=== PATIENT | female | born 2005 | race Caucasian/White ===

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

== ENCOUNTER 2024-07-09 11:45 | Emergency (ER) | payer OTHER, MEDICAID ==
[2024-07-09 12:47] VITALS: BP 101/64; PULSE 63; RESP 18; TEMP 97.1; O2SAT 99
--- NOTE | 2024-07-09 13:10 | ERPHSYRPT ---
- History of Present Illness Time Seen by Provider: 07/09/24 13:03 Source: patient, family Exam Limitations: no limitations Patient Subjective Stated Complaint: pt here for rash to body since wed. Triage Nursing Assessment: pt alert, walked in, resp easy, skin w/d/p has rash to trunk, co itching. no difficulty swolling Physician History: I was delayed with 2 hypotensive pts and delayed being able to bring this pt back and see them. the pt iw very allergic to poison demetrice and the di weed eating of this and then had contact with who broke out. No one else is allergic and she has just had a a few weeks old and wondering about feeding. She will consult with medicare insurance specialist hot line today to confirm but the literature search confirms this should be safe. she has cleansed all skin prior to contact with infant and no rash in infant after several days. Not sobreath and swallowing in ER ok. rash with papules similar to prior cases pt has had. discussed risks/benefits of further testing and Tx with steroids with pt and family and they wish to proceed presumptively without any further w/u given the hx and have the capacity to make this choice. Timing/Duration: day(s) Quality: burning, itchy Severity: moderate Location: torso, extremities Possible Causes: exposure to allergen, poison demetrice Associated Symptoms: blisters, change in skin texture, rash, No difficulty breathing, No fever, No flushing, No hives, No sore throat Allergies/Adverse Reactions: Penicillins Allergy (Mild, Verified 07/09/24 12:46) Nausea and Vomiting Hx Tetanus, Diphtheria Vaccination/Date Given: No Hx Influenza Vaccination/Date Given: No Hx Pneumococcal Vaccination/Date Given: No Immunizations Up to Date: Yes Travel Risk - International Travel Have you traveled outside of the country in past 3 weeks: No - Emerging Infectious Disease Are you exhibiting symptoms associated with any current EIDs: No - Review of Systems Constitutional: No Fever, No Chills Eyes: No Symptoms Ears, Nose, & Throat: No Symptoms, No Throat Pain, No Throat Swelling, No Hoarse, No Painful Swallowing, No Stridor Respiratory: No Cough, No Dyspnea, No Stridor, No Wheezing Cardiac: No Chest Pain, No Edema, No Syncope Abdominal/Gastrointestinal: No Abdominal Pain, No Nausea, No Vomiting, No Diarrhea Genitourinary Symptoms: No Dysuria Musculoskeletal: No Back Pain, No Neck Pain Skin: Rash Neurological: No Dizziness, No Focal Weakness, No Sensory Changes Psychological: No Symptoms Endocrine: No Symptoms All Other Systems: Reviewed and Negative - Past Medical History Pertinent Past Medical History: No Neurological History: No Pertinent History ENT History: No Pertinent History Cardiac History: No Pertinent History Respiratory History: No Pertinent History Endocrine Medical History: No Pertinent History Musculoskeletal History: No Pertinent History GI Medical History: No Pertinent History History: No Pertinent History Psycho-Social History: No Pertinent History Female Reproductive Disorders: Endometriosis Other Medical History: . - Past Surgical History Past Surgical History: No Neuro Surgical History: No Pertinent History Cardiac: No Pertinent History Respiratory: No Pertinent History Gastrointestinal: No Pertinent History Genitourinary: No Pertinent History Musculoskeletal: No Pertinent History Female Surgical History: No Pertinent History - Female History Hx Last Menstrual Period: sep 2023 Hx Now: No - Social History Smoking Status: Never smoker How long have you smoked: 1 year Exposure to second hand smoke: No Drug Use: none Patient Lives Alone: No - Social Determinants of Health Will the patient participate in the screening: Declined to provide - Nursing Vital Signs Nursing Vital Signs: Initial Vital Signs Temperature 97.1 F 07/09/24 12:46 Pulse Rate 63 07/09/24 12:46 Respiratory Rate 18 07/09/24 12:46 Blood Pressure 101/64 07/09/24 12:46 O2 Sat by Pulse Oximetry 99 07/09/24 12:46 Pain Scale Pain Intensity 0 - Physical Exam General Appearance: no apparent distress, alert Eye Exam: PERRL/EOMI, eyes nml inspection Ears, Nose, Throat Exam: normal ENT inspection, pharynx normal, moist mucous membranes Neck Exam: normal inspection, non-tender, supple, full range of motion Respiratory Exam: normal breath sounds, lungs clear, airway intact, No respiratory distress, No diminished breath sounds, No accessory muscle use, No prolonged expirations, No crackles/rales, No rhonchi, No wheezing, No stridor Cardiovascular Exam: regular rate/rhythm, normal heart sounds Gastrointestinal/Abdomen Exam: soft, mass, No tenderness Back Exam: normal inspection, normal range of motion, No CVA tenderness, No vertebral tenderness Extremity Exam: normal inspection, normal range of motion Neurologic Exam: alert, oriented x 3, cooperative, normal mood/affect, sensation nml, No motor deficits Skin Exam: normal color, warm, dry, rash SpO2 Interpretation: normal SpO2: 99 O2 Delivery: Room Air - Course Nursing assessment & vital signs reviewed: Yes - Progress Progress: improved, re-examined Counseled pt/family regarding: diagnosis, need for follow-up Medical Desision Making - Independent Historian Additional History obtained from: Family - Discussion of managment Reviewed:: Test results, Need for additional workup Agreed on:: Treatment plan, need for follow-up - Diagnostic Testing Diagnostic test were ordered, analyzed, and reviewed by me: No - Risk of complications The pt has a mod risk of morbidity or mortality based on: Need for prescription drug management - Departure Departure Disposition: Home Clinical Impression: Contact dermatitis, Rhus dermatitis, rash consistent with poison demetrice exposure Condition: Good Critical Care Time: No Referrals: IVETH DOWLING MD [Primary Care Provider] - Follow up/PCP as directed Instructions: Poison Demetrice, Poison [place], Poison [place] ([place]) Additional Instructions: Although we cannot be certain the source for your rash- the history of exposure to your family member after his exposure makes the poison demetrice a likely source in view of your history of allergy. We will try a course of steroids and you should followup with your Dr., your exhauster engineer for the , and the hotline even though the literature suggests that breast feeding should be safe on this med. pump and dump anyway for 4 hours after the inject ion, to be safe. return meantime if short of breath, trouble swallowing or not improving or any other concerns. Prescriptions: Methylprednisolone Packet [Medrol Dosepack] 4 mg PO UD #30 packet
[2024-07-09] MEDS ORDERED: DECADRON 10MG INJ. ONE (13:19)
[2024-07-09] MEDS: DECADRON 10MG INJ. IM ONE (13:22)
== END 2024-07-09 13:49 | disposition home or self-care (01) ==
LOC: ED 11:45
DX: L23.7 Allergic contact dermatitis due to plants, except food (principal); Z79.52 Long term (current) use of systemic steroids
CPT/HCPCS: 96372; 99282; J1100

== ENCOUNTER 2024-08-23 21:22 | Emergency (ER) | payer MEDICAID ==
[2024-08-23 21:44] VITALS: TEMP 98.3
[2024-08-23] MEDS: TORAdol 30 mg Injection IV ONE (22:39)
[2024-08-23] MEDS ORDERED: TORAdol 30 mg Injection ONE (22:39)
[2024-08-23 22:47] LABS: Absolute Neutrophil Ct (ANC) 6.16 x10^3/uL (1.56-6.13); BASOPHIL % 0.4 % (0.1-1.2); Basophil (Absolute #) 0.04 x10^3/uL (0.01-0.08); Eosinophil % 1.3 % (0.7-5.8); Eosinophil (Absolute #) 0.12 x10^3/uL (0.04-0.36); Hematocrit 39.8 % (34.1-44.9); IMMATURE GRAN # 0.03 x10^3u/L (0.001-0.031); IMMATURE GRAN % 0.3 % (0.001-0.429); Lymphocyte (Absolute #) 2.13 x10^3/uL (1.18-3.74); Lymphocytes % 23.6 % (19.3-51.7); Mean Cell Volume 76.8 fL (79.4-94.8); Mean Corpuscular Hemoglobin 25.1 pg (25.6-32.2); Mean Corpuscular Hgb Concent. 32.7 g/dL (32.2-35.5); Mean Platelet Volume 10.1 fL (9.4-12.3); Monocyte (Absolute #) 0.53 x10^3/uL (0.24-0.86); Monocytes % 5.9 % (4.7-12.5); Neutrophil % 68.5 % (34.0-71.1); Platelet Count 450 x10^3/uL (182-369); Red Blood Count 5.18 x10^6/uL (3.93-5.22); Red Cell Distribution Width 19.6 % (11.7-14.4)
--- NOTE | 2024-08-23 22:49 | ERPHSYRPT ---
- History of Present Illness Time Seen by Provider: 08/23/24 21:50 Source: patient Patient Subjective Stated Complaint: c/o of vaginal bleeding and abdominal cramping Triage Nursing Assessment: Pt was brought to ED by with c/o of vaginal bleeding that started on 07/28/2024 and abdominal cramping in the bilat. lower quads and lower back. Patient rates pain 4/10 but stated that pain was so bad this morning that she couldn't get out bed. Patient had given on June 22, 2024. Pt states that she has gone through a tampon every hour. Pt has a family history of endometriosis but hasn't been diagnosed with it herself. Tachycardic, pulses normal, skin w/n/d, gait steady, last BM today, last oral intake at 2100, bowel sounds present in all four quads, abdomen tender with palpation, pt doesn't appear to be in any distress at this time. Physician History: Patient is a 27-year-old female presents to our ED for evaluation of vaginal bl eeding that started on 07 28. Patient states she has been experiencing intermittent cramping since this time. Patient reports the vaginal bleeding has gotten somewhat worse. Patient states she is bleeding through a tampon every hour. Patient has discussed this issue with her [employer] physician. She reports that the [employer]CIAL OFFICER states that there is "nothing he can do". Patient concern for possible endometriosis. Patient reports that she had a significant family history of endometriosis. No trauma no fever. No active pain at this time. Patient declined pain medication. Vital stable. Patient states she is otherwise healthy. Patient voices no other complaints or concerns at this time. Portions of this note were created with voice recognition technology. There may be grammatical, spelling, punctuation or sound alike errors Timing/Duration: today Severity: moderate Modifying Factors: Improves With: nothing Associated Symptoms: denies symptoms Allergies/Adverse Reactions: Penicillins Allergy (Mild, Verified 08/23/24 21:44) Nausea and Vomiting Home Medications: Estradiol Cypionate [Depo-Estradiol] 5 mg IM UD 08/23/24 [History] Hx Tetanus, Diphtheria Vaccination/Date Given: No Hx Influenza Vaccination/Date Given: Yes Hx Pneumococcal Vaccination/Date Given: No Travel Risk - International Travel Have you traveled outside of the country in past 3 weeks: No - Emerging Infectious Disease Are you exhibiting symptoms associated with any current EIDs: No - Review of Systems Constitutional: No Symptoms, No Fever, No Chills Eyes: No Symptoms Ears, Nose, & Throat: No Symptoms Respiratory: No Symptoms, No Cough, No Dyspnea Cardiac: No Symptoms, No Chest Pain, No Edema, No Syncope Abdominal/Gastrointestinal: No Symptoms, No Abdominal Pain, No Nausea, No Vomiting, No Diarrhea Genitourinary Symptoms: No Symptoms, No Dysuria Musculoskeletal: No Symptoms, No Back Pain, No Neck Pain Skin: No Symptoms, No Rash Neurological: No Symptoms, No Dizziness, No Focal Weakness, No Sensory Changes Psychological: No Symptoms Endocrine: No Symptoms Hematologic/Lymphatic: No Symptoms Immunological/Allergic: No Symptoms All Other Systems: Reviewed and Negative - Past Medical History Pertinent Past Medical History: No Neurological History: No Pertinent History ENT History: No Pertinent History Cardiac History: No Pertinent History Respiratory History: No Pertinent History Endocrine Medical History: No Pertinent History Musculoskeletal History: No Pertinent History GI Medical History: No Pertinent History History: No Pertinent History Psycho-Social History: No Pertinent History Female Reproductive Disorders: Endometriosis Other Medical History: . - Past Surgical History Past Surgical History: No Neuro Surgical History: No Pertinent History Cardiac: No Pertinent History Respiratory: No Pertinent History Gastrointestinal: No Pertinent History Genitourinary: No Pertinent History Musculoskeletal: No Pertinent History Female Surgical History: No Pertinent History - Female History Hx Last Menstrual Period: 08/23/2024 Hx Now: No - Social History Smoking Status: Never smoker How long have you smoked: 1 year Exposure to second hand smoke: No Drug Use: none Patient Lives Alone: No - Social Determinants of Health Will the patient participate in the screening: Yes Do you worry about a steady place to live?: No Do you have any problems with any of the following?: No known problems In the past 12 months,have you had to go without utilities?: No Transportation Issues: No Has anyone in your support network made you feel unsafe?: No Have you or anyone in your house had to go without enough: No - Nursing Vital Signs Nursing Vital Signs: Initial Vital Signs Temperature 98.3 F 08/23/24 21:29 Pulse Rate 116 H 08/23/24 21:29 Respiratory Rate 16 08/23/24 21:29 Blood Pressure 130/80 08/23/24 21:29 O2 Sat by Pulse Oximetry 98 08/23/24 21:29 Pain Scale Pain Intensity 1 - Physical Exam General Appearance: no apparent distress, alert Eye Exam: PERRL/EOMI, eyes nml inspection Ears, Nose, Throat Exam: normal ENT inspection, pharynx normal, moist mucous membranes Neck Exam: normal inspection, non-tender, supple, full range of motion Respiratory Exam: normal breath sounds, lungs clear, airway intact, No respiratory distress Cardiovascular Exam: regular rate/rhythm, normal heart sounds, normal peripheral pulses Gastrointestinal/Abdomen Exam: soft, normal bowel sounds, No tenderness, No mass Pelvic Exam: normal external exam, other (Scant blood in vault no foul odor), No adnexal tenderness, No adnexal mass, No cervical motion tenderness Back Exam: normal inspection, normal range of motion, No CVA tenderness, No vertebral tenderness Extremity Exam: normal inspection, normal range of motion, pelvis stable Neurologic Exam: alert, oriented x 3, cooperative, normal mood/affect, sensation nml, No motor deficits Skin Exam: normal color, warm, dry, No rash Lymphatic Exam: No adenopathy SpO2 Interpretation: normal SpO2: 99 O2 Delivery: Room Air - Course Nursing assessment & vital signs reviewed: Yes Ordered Tests: Active Orders 24 hr Category Date Time Status IV Insertion STAT Care 08/23/24 22:07 Active CBC W DIFF Stat Lab 08/23/24 22:45 Completed CMP Stat Lab 08/23/24 22:45 Completed CULTURE,URINE Stat Lab 08/23/24 22:17 Received HCG QUALITATIVE, URINE Stat Lab 08/23/24 22:45 Completed UA W/RFX UR CULTURE Stat Lab 08/23/24 22:17 Completed Medication Summary Discontinued Medications Generic Name Dose Route Start Last Admin Trade Name Kyle PRN Reason Stop Dose Admin Ketorolac Tromethamine 30 mg 08/23/24 22:07 08/23/24 22:39 Ketorolac Tromethamine 30 Mg/Ml Inj IV 08/23/24 22:08 30 mg STAT ONE Administration Ketorolac Tromethamine Confirm 08/23/24 22:39 Ketorolac Tromethamine 30 Mg/Ml Inj Administered 08/23/24 22:40 Dose 30 mg .ROUTE .crossvertise-Synthox ONE Lab/Rad Data: Laboratory Result Diagrams 08/23/24 22:45 08/23/24 22:45 Laboratory Results 08/23/24 08/23/2424 Range/Units Unknown 23:00 22:45 WBC (3.98-10.04) x10^3/uL RBC (3.93-5.22) x10^6/uL Hgb (11.2-15.7) g/dL Hct (34.1-44.9) % MCV (79.4-94.8) fL MCH (25.6-32.2) pg MCHC (32.2-35.5) g/dL RDW (11.7-14.4) % Plt Count (182-369) x10^3/uL MPV (9.4-12.3) fL Gran % (34.0-71.1) % Immature Gran % (Auto) (0.001-0.429) % Nucleat RBC Rel Count (0.00-0.2) % Eos # (Auto) (0.04-0.36) x10^3/uL Immature Gran # (Auto) (0.001-0.031) x10^3u/L Absolute Lymphs (auto) (1.18-3.74) x10^3/uL Absolute Monos (auto) (0.24-0.86) x10^3/uL Absolute Nucleated RBC (0.00-0.012) x10^3u/L Lymphocytes % (19.3-51.7) % Monocytes % (4.7-12.5) % Eosinophils % (0.7-5.8) % Basophils % (0.1-1.2) % Absolute Granulocytes (1.56-6.13) x10^3/uL Basophils # (0.01-0.08) x10^3/uL Sodium (135-145) mmol/L Potassium (3.5-5.1) mmol/L Chloride (98-107) mmol/L Carbon Dioxide (22-30) mmol/L Anion Gap (5-15) MEQ/L BUN (7-17) mg/dL Creatinine (0.52-1.04) mg/dL Estimated GFR ML/MIN Glucose (74-106) mg/dL Calcium (8.4-10.2) mg/dL Total Bilirubin (0.2-1.3) mg/dL AST (14-36) U/L ALT (0-35) U/L Alkaline Phosphatase (38-126) U/L Serum Total Protein (6.3-8.2) g/dL Albumin (3.5-5.0) g/dL Urine Color (Yellow) Urine Appearance (Clear) Urine pH (4.6-8.0) Ur Specific [place] (1.005-1.030) Urine Protein (Negative) Urine Glucose (UA) (Negative) mg/dL Urine Ketones (Negative) Urine Blood (Negative) Urine Nitrite (Negative) Urine Bilirubin (Negative) Urine Urobilinogen (0.2) mg/dL Ur Leukocyte Esterase (Negative) U Hyaline Cast (Auto) (0-2) /LPF Urine Microscopic RBC (0-5) /HPF Urine Microscopic WBC (0-5) /HPF Ur Epithelial Cells (None Seen) /HPF Urine Bacteria (None Seen) /HPF Urine Culture Reflexed (NO) Urine HCG, Qual NEGATIVE (NEGATIVE) Vaginal Maryam Group DETECTED A (NEGATIVE) Maryam species NOT DETECTED (NEGATIVE) Chlamydia DNA Probe NOT DETECTED (NEGATIVE) N.gonorrhoeae DNA Probe NOT DETECTED (NEGATIVE) T. vaginalis (PCR) NOT DETECTED (NEGATIVE) Bact vaginosis (PCR) NEGATIVE (NEGATIVE) 08/23/24 08/23/24 08/23/24 Range/Units 22:45 22:45 22:17 WBC 9.0 (3.98-10.04) x10^3/uL RBC 5.18 (3.93-5.22) x10^6/uL Hgb 13.0 (11.2-15.7) g/dL Hct 39.8 (34.1-44.9) % MCV 76.8 L (79.4-94.8) fL MCH 25.1 L (25.6-32.2) pg MCHC 32.7 (32.2-35.5) g/dL RDW 19.6 H (11.7-14.4) % Plt Count 450 H (182-369) x10^3/uL MPV 10.1 (9.4-12.3) fL Gran % 68.5 (34.0-71.1) % Immature Gran % (Auto) 0.3 (0.001-0.429) % Nucleat RBC Rel Count 0.0 (0.00-0.2) % Eos # (Auto) 0.12 (0.04-0.36) x10^3/uL Immature Gran # (Auto) 0.03 (0.001-0.031) x10^3u/L Absolute Lymphs (auto) 2.13 (1.18-3.74) x10^3/uL Absolute Monos (auto) 0.53 (0.24-0.86) x10^3/uL Absolute Nucleated RBC 0.00 (0.00-0.012) x10^3u/L Lymphocytes % 23.6 (19.3-51.7) % Monocytes % 5.9 (4.7-12.5) % Eosinophils % 1.3 (0.7-5.8) % Basophils % 0.4 (0.1-1.2) % Absolute Granulocytes 6.16 H (1.56-6.13) x10^3/uL Basophils # 0.04 (0.01-0.08) x10^3/uL Sodium 140 (135-145) mmol/L Potassium 3.6 (3.5-5.1) mmol/L Chloride 107 (98-107) mmol/L Carbon Dioxide 21 L (22-30) mmol/L Anion Gap 15.6 H (5-15) MEQ/L BUN 13 (7-17) mg/dL Creatinine 0.55 (0.52-1.04) mg/dL Estimated GFR 134.5 ML/MIN Glucose 124 H (74-106) mg/dL Calcium 9.2 (8.4-10.2) mg/dL Total Bilirubin 1.10 (0.2-1.3) mg/dL AST 72 H (14-36) U/L ALT 94 H (0-35) U/L Alkaline Phosphatase 77 (38-126) U/L Serum Total Protein 7.8 (6.3-8.2) g/dL Albumin 4.7 (3.5-5.0) g/dL Urine Color Yellow (Yellow) Urine Appearance Cloudy A (Clear) Urine pH 6.0 (4.6-8.0) Ur Specific [place] >=1.030 A (1.005-1.030) Urine Protein 30 (Negative) Urine Glucose (UA) Negative (Negative) mg/dL Urine Ketones Trace A (Negative) Urine Blood Small A (Negative) Urine Nitrite Negative (Negative) Urine Bilirubin Negative (Negative) Urine Urobilinogen 1.0 A (0.2) mg/dL Ur Leukocyte Esterase Small A (Negative) U Hyaline Cast (Auto) 3-5 A (0-2) /LPF Urine Microscopic RBC 0-2 (0-5) /HPF Urine Microscopic WBC 11-20 A (0-5) /HPF Ur Epithelial Cells Rare (None Seen) /HPF Urine Bacteria Rare A (None Seen) /HPF Urine Culture Reflexed YES (NO) Urine HCG, Qual (NEGATIVE) Vaginal Maryam Group (NEGATIVE) Maryam species (NEGATIVE) Chlamydia DNA Probe (NEGATIVE) N.gonorrhoeae DNA Probe (NEGATIVE) T. vaginalis (PCR) (NEGATIVE) Bact vaginosis (PCR) (NEGATIVE) - Progress Progress: improved Progress Note: 19-year-old female presents to our ED for evaluation of vaginal bleeding and intermittent cramping x 1 month. Physical exam essentially nonremarkable. Pelvic exam negative for active bleeding. Workup reveals a Maryam vaginal infection. Patient received a dose of Diflucan in our ED 150 mg x 1. A second dose for the patient's pharmacy to be taken on 08/26/2024. Urinalysis significant for urinary tract infection. Patient received an oral dose of Macrobid in our ED. A prescription for the same was forwarded to patient's pharmacy. Patient states she is ready for discharge. Patient requesting follow-up with OB. Referral to Dr. Tinoco provided. Patient will call in the morning for follow-up. Patient resting comfortably. She declined pain medication. Patient states she feels well at this time no active bleeding patient is ready for discharge. Portions of this note were created with voice recognition technology. There may be grammatical, spelling, punctuation or sound alike errors Complexity of problem addressed is moderate acute complicated. No critical care time. Complex of data reviewed and analyzed is moderate. Test ordered test reviewed results analyzed and correlated clinically with history and physical exam. Risk of complication and or risk morbidity/mortality patient management is moderate. A prescription for Diflucan forwarded to patient's pharmacy. Vital stable. Time spent to discharge patient is approximately 20 minutes. Plan of care established for shared decision making. No social determinants of health present to impede follow-up. Portions of this note were created with voice recognition technology. There may be grammatical, spelling, punctuation or sound alike errors 08/24/24 00:35 Counseled pt/family regarding: lab results, diagnosis, need for follow-up, rad results - Departure Departure Disposition: Home Clinical Impression: Vaginal bleeding, Pelvic cramping, Maryam infection, UTI (urinary tract infection) Condition: Stable Critical Care Time: No Referrals: IVETH DOWLING MD [Primary Care Provider] - Follow up/PCP as directed Additional Instructions: Discharge/Care Plan GABBY RADER was seen on 08/24/24 in the Emergency Room. The patient was counseled regarding Diagnosis,Lab results, Imaging studies, need for follow up and when to return to the Emergency Room. Prescriptions given: Discharge Note I have spoken with the patient and/or caregivers. I have explained the patient's condition, diagnosis and treatment plan based on the information available to me at this time. I have answered the patient's and/or caregiver's questions and addressed any concerns. The patient and/or caregivers have as good understanding of the patient's diagnosis, condition and treatment plan as can be expected at this point. The vital signs have been stable. The patient's condition is stable and appropriate for discharge from the emergency department. The patient will pursue further outpatient evaluation with the primary care physician or other designated or consulting physician as outlined in the discharge instructions. The patient and/or caregivers are agreeable to this plan of care and follow-up instructions have been explained in detail. The patient and/or caregivers have received these instruction. The patient/and or caregivers are aware that any significant change in condition or worsening of symptoms should prompt an immediate return to this or the closest emergency department or call 911. Prescriptions: Fluconazole [Diflucan ] 150 mg PO DAILY 1 Days #1 tablet Nitrofurantoin Macro 100 mg [Macrobid 100MG Capsule] 100 mg PO BID 7 Days #14 cap
[2024-08-23 22:51] LABS: HCG URINE TEST NEGATIVE (NEGATIVE)
[2024-08-23 22:55] LABS: Appearance Cloudy (Clear); Bacteria Rare /HPF (None Seen); Bilirubin Negative (Negative); Blood Small (Negative); Epithelial Cells Rare /HPF (None Seen); Glucose, Urine Negative (Negative); Ketones Trace (Negative); Leukocyte Esterase Small (Negative); Nitrite Negative (Negative); Protein,Urine Dip 30 (Negative); RBC 0-2 /HPF (0-5); Specific Gravity >=1.030 (1.005-1.030)
[2024-08-23 23:01] LABS: ALBUMIN 4.7 g/dL (3.5-5.0); ANION GAP 15.6 MEQ/L (5-15); BILIRUBIN,TOTAL 1.1 mg/dL (0.2-1.3); Calcium 9.2 mg/dL (8.4-10.2); Creatinine 1 0.55 mg/dL (0.52-1.04); EST GLOMERULAR FILTRATION RATE 134.5 ML/MIN; Potassium 3.6 mmol/L (3.5-5.1); Total Protein 7.8 g/dL (6.3-8.2)
[2024-08-24 00:06] LABS: CHLAMYDIA DNA NOT DETECTED (NEGATIVE); GC DNA Probe NOT DETECTED (NEGATIVE)
[2024-08-24 00:09] LABS: Candida Group DETECTED (NEGATIVE); Candida glab/krus NOT DETECTED (NEGATIVE)
[2024-08-24 00:34] VITALS: O2SAT 99
[2024-08-24] MEDS: DIFLUCAN PO STA (00:42)
[2024-08-24] MEDS ORDERED: Macrobid 100MG Capsule ONE (00:42)
[2024-08-24] MEDS: Macrobid 100MG Capsule PO ONE (00:42)
[2024-08-24 00:50] VITALS: BP 112/76; PULSE 70; RESP 16
== END 2024-08-24 00:57 | disposition home or self-care (01) ==
LOC: ED 21:22
DX: N39.0 Urinary tract infection, site not specified (principal); B37.31 Acute candidiasis of vulva and vagina; N93.9 Abnormal uterine and vaginal bleeding, unspecified; R10.2 Pelvic and perineal pain; Z79.899 Other long term (current) drug therapy
CPT/HCPCS: 36000; 36415; 80053; 81001; 81025; 85025; 87086; 87481; 87491; 87591; 87661; 87801; 96374; 99284; J1885; A9270-GY

== ENCOUNTER 2024-09-23 22:05 | Emergency (ER) | payer OTHER ==
--- NOTE | 2024-09-23 22:14 | ERPHSYRPT ---
- History of Present Illness Time Seen by Provider: 09/23/24 22:13 Source: patient Exam Limitations: no limitations Allergies/Adverse Reactions: Penicillins Allergy (Mild, Verified 08/23/24 21:44) Nausea and Vomiting Home Medications: Estradiol Cypionate [Depo-Estradiol] 5 mg IM UD 08/23/24 [History] Hx Tetanus, Diphtheria Vaccination/Date Given: No Hx Influenza Vaccination/Date Given: Yes Hx Pneumococcal Vaccination/Date Given: No Travel Risk - Emerging Infectious Disease Are you exhibiting symptoms associated with any current EIDs: No - Past Medical History Pertinent Past Medical History: No Neurological History: No Pertinent History ENT History: No Pertinent History Cardiac History: No Pertinent History Respiratory History: No Pertinent History Endocrine Medical History: No Pertinent History Musculoskeletal History: No Pertinent History GI Medical History: No Pertinent History History: No Pertinent History Psycho-Social History: No Pertinent History Female Reproductive Disorders: Endometriosis Other Medical History: . - Past Surgical History Past Surgical History: No Neuro Surgical History: No Pertinent History Cardiac: No Pertinent History Respiratory: No Pertinent History Gastrointestinal: No Pertinent History Genitourinary: No Pertinent History Musculoskeletal: No Pertinent History Female Surgical History: No Pertinent History - Female History Hx Last Menstrual Period: 08/23/2024 - Social History Smoking Status: Never smoker How long have you smoked: 1 year Exposure to second hand smoke: No Drug Use: none Patient Lives Alone: No - Social Determinants of Health Will the patient participate in the screening: Yes Do you worry about a steady place to live?: No In the past 12 months,have you had to go without utilities?: No Transportation Issues: No Has anyone in your support network made you feel unsafe?: No Have you or anyone in your house had to go without enough: No - Departure Referrals: IVETH DOWLING MD [Primary Care Provider] - Follow up/PCP as directed
[2024-09-23 22:28] VITALS: RESP 14; TEMP 98.1
[2024-09-23 22:35] LABS: HCG URINE TEST NEGATIVE (NEGATIVE)
[2024-09-23 22:38] LABS: Appearance Clear (Clear); Bacteria None Seen /HPF (None Seen); Bilirubin Negative (Negative); Blood Moderate (Negative); Epithelial Cells Rare /HPF (None Seen); Glucose, Urine Negative (Negative); Hyaline Casts NONE SEEN /LPF (0-2); Ketones Trace (Negative); Leukocyte Esterase Negative (Negative); Nitrite Negative (Negative); Ph 6.5 (4.6-8.0); Protein,Urine Dip Negative (Negative); Specific Gravity 1.025 (1.005-1.030)
--- NOTE | 2024-09-23 23:27 | ERPHSYRPT ---
- History of Present Illness Time Seen by Provider: 09/23/24 22:13 Source: patient Exam Limitations: no limitations Patient Subjective Stated Complaint: pt states that she is having cramping and bleeding. when asked how many pad or tampons pt is going through pt states "I am not actively bleeding and my last period was 08/27" Triage Nursing Assessment: pt ambulated into the er; pt is axo x4; c/o cramping; pt states 4/10 pain to lower abd; hyperactive bowel sounds in all quads; abd soft, tender, round; c/o nausea, denies vomiting, diarrhea; skin PDW; no respiratory distress present; vitals wnl Physician History: This is a 19-year-old white female patient who arrives to the emergency department by private vehicle secondary to bilateral lower quadrant abdominal cramping that has been present for 5 years. It has been worsening. Patient is scheduled for a diagnostic laparoscopy on September 26. She has no dysuria. She has no vaginal discharge. She denies vaginal bleeding. Her last menstrual period was on 08/27/2024. She has had no nausea vomiting or diarrhea symptoms. She denies chest pain and she denies shortness of breath. Patient did state that she has preoperative labs that needs to be drawn before her surgery date. She was planning on having them performed on 09/25/2024. I offered to add those to the workup today. Activites at Onset: none Quality: cramping (Bilateral suprapubic) Onset Location: suprapubic (Bilateral) Pain Radiation: none Severity of Pain-Max: mild Severity of Pain-Current: mild Sexual intercourse history: non-contributory Modifying Factors: Improves With: nothing Associated Symptoms: denies symptoms Allergies/Adverse Reactions: Penicillins Allergy (Mild, Verified 09/23/24 22:15) Nausea and Vomiting Home Medications: No Reportable Medications [No Reported Medications] 09/23/24 [History] Hx Tetanus, Diphtheria Vaccination/Date Given: Yes Hx Influenza Vaccination/Date Given: Yes Hx Pneumococcal Vaccination/Date Given: No Travel Risk - International Travel Have you traveled outside of the country in past 3 weeks: No - Emerging Infectious Disease Are you exhibiting symptoms associated with any current EIDs: Yes Symptoms: Abdominal Pain - Review of Systems Constitutional: No Symptoms Eyes: No Symptoms Ears, Nose, & Throat: No Symptoms Respiratory: No Symptoms Cardiac: No Symptoms Abdominal/Gastrointestinal: Abdominal Pain (Bilateral suprapubic) Genitourinary Symptoms: No Symptoms Musculoskeletal: No Symptoms Skin: No Symptoms Neurological: No Symptoms Psychological: No Symptoms Endocrine: No Symptoms Hematologic/Lymphatic: No Symptoms Immunological/Allergic: No Symptoms All Other Systems: Reviewed and Negative - Past Medical History Pertinent Past Medical History: Yes Neurological History: No Pertinent History ENT History: No Pertinent History Cardiac History: No Pertinent History Respiratory History: No Pertinent History Endocrine Medical History: No Pertinent History Musculoskeletal History: No Pertinent History GI Medical History: No Pertinent History History: No Pertinent History Psycho-Social History: No Pertinent History Female Reproductive Disorders: Endometriosis Other Medical History: . - Past Surgical History Past Surgical History: No Neuro Surgical History: No Pertinent History Cardiac: No Pertinent History Respiratory: No Pertinent History Gastrointestinal: No Pertinent History Genitourinary: No Pertinent History Musculoskeletal: No Pertinent History Female Surgical History: No Pertinent History - Female History Hx Last Menstrual Period: 08/27/24 Hx Now: No (unsure) - Social History Smoking Status: Light tobacco smoker How long have you smoked: 1 year Exposure to second hand smoke: No Drug Use: none Patient Lives Alone: No - Social Determinants of Health Will the patient participate in the screening: Yes Do you worry about a steady place to live?: No Do you have any problems with any of the following?: No known problems In the past 12 months,have you had to go without utilities?: No Transportation Issues: No Has anyone in your support network made you feel unsafe?: No Have you or anyone in your house had to go without enough: No - Nursing Vital Signs Nursing Vital Signs: Initial Vital Signs Temperature 98.1 F 09/23/24 22:17 Pulse Rate 81 09/23/24 22:17 Respiratory Rate 14 09/23/24 22:17 Blood Pressure 128/85 09/23/24 22:17 O2 Sat by Pulse Oximetry 98 09/23/24 22:17 Pain Scale Pain Intensity 4 - Physical Exam General Appearance: no apparent distress, alert, thin Eye Exam: PERRL/EOMI, eyes nml inspection Ears, Nose, Throat Exam: normal ENT inspection Neck Exam: normal inspection, non-tender, supple, full range of motion Respiratory Exam: normal breath sounds, lungs clear, airway intact, No chest tenderness, No respiratory distress Cardiovascular Exam: regular rate/rhythm, normal heart sounds, normal peripheral pulses Gastrointestinal/Abdomen Exam: soft, normal bowel sounds, No tenderness, No guarding, No rebound Pelvic Exam: not done Rectal Exam: not done Back Exam: normal inspection, normal range of motion, No CVA tenderness, No vertebral tenderness Extremity Exam: normal inspection, normal range of motion, pelvis stable Neurologic Exam: alert, oriented x 3, cooperative, 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 II-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 nml as tested, normal mood/affect, nml cerebellar function, nml station & gait, sensation nml Skin Exam: normal color, warm, dry Lymphatic Exam: No adenopathy SpO2 Interpretation: normal SpO2: 98 O2 Delivery: Room Air - Course Nursing assessment & vital signs reviewed: Yes Ordered Tests: Active Orders 24 hr Category Date Time Status HCG QUALITATIVE, URINE Stat Lab 09/23/24 22:30 Completed UA W/RFX UR CULTURE Stat Lab 09/23/24 22:30 Completed Lab/Rad Data: Laboratory Results 09/23/24 09/23/24 Range/Units 22:30 22:30 Urine Color Yellow (Yellow) Urine Appearance Clear (Clear) Urine pH 6.5 (4.6-8.0) Ur Specific [place] 1.025 (1.005-1.030) Urine Protein Negative (Negative) Urine Glucose (UA) Negative (Negative) mg/dL Urine Ketones Trace A (Negative) Urine Blood Moderate A (Negative) Urine Nitrite Negative (Negative) Urine Bilirubin Negative (Negative) Urine Urobilinogen 1.0 A (0.2) mg/dL Ur Leukocyte Esterase Negative (Negative) U Hyaline Cast (Auto) NONE SEEN (0-2) /LPF Urine Microscopic RBC 6-10 A (0-5) /HPF Urine Microscopic WBC 3-5 (0-5) /HPF Ur Epithelial Cells Rare (None Seen) /HPF Urine Bacteria None Seen (None Seen) /HPF Urine Culture Reflexed NO (NO) Urine HCG, Qual NEGATIVE (NEGATIVE) - Progress Progress: unchanged Air Movement: good Progress Note: 09/23/24 23:24 My medical decision making and the assignment of low complexity to this patient's medical issue today is based on review of the patient's past medical history, review of the patient's medication list, review of the patient's drug allergy list, history present illness and physical findings on examination. The workup in this patient includes urine test and urinalysis. Differential diagnosis includes but is not limited to , urinary tract infection I did offer to have her preoperative labs drawn today since she is here rather than have to return to the hospital on 09/25/2024 to have them drawn. However, the patient is unable to locate the preoperative paperwork. The patient does not have an acute surgical abdomen. She has no fevers. She has had no nausea vomiting or diarrhea symptoms. I interpreted the patient's laboratory data results and she has no acute, emergent medical issue. In just 3 days she will be having a diagnostic laparoscopy at a minimum and they will be able to determine intra-abdominal abnormalities. I do not think it is necessary to have this patient undergo a CT scan of the abdomen pelvis at this time as she does not have, on my examination at this time, and acute surgical abdomen Blood Culture(s) Obtained: No Antibiotics given: No Counseled pt/family regarding: lab results, diagnosis, need for follow-up Medical Desision Making - Diagnostic Testing Diagnostic test were ordered, analyzed, and reviewed by me: Yes - Risk of complications Minimal Risk: Minimal risk of morbidity - Departure Departure Disposition: Home Clinical Impression: Chronic abdominal pain Condition: Stable Critical Care Time: No Referrals: IVETH DOWLING MD [Primary Care Provider] - Follow up/PCP as directed Additional Instructions: Drink plenty of fluids. If there are no contraindications, use Tylenol and ibuprofen for pain control. Obtain your preoperative laboratory workup per your instructions. Keep your appointment with your core driller helper on 09/26/2024 for your diagnostic laparoscopy.
[2024-09-23 23:34] VITALS: BP 111/81; PULSE 76; O2SAT 99
== END 2024-09-23 23:39 | disposition home or self-care (01) ==
LOC: ED 22:05
DX: G89.29 Other chronic pain (principal); R10.31 Right lower quadrant pain; R10.32 Left lower quadrant pain; Z72.0 Tobacco use
CPT/HCPCS: 81001; 81025; 99282

== ENCOUNTER 2024-09-26 07:11 | Day surgery (SDC) | payer OTHER ==
[2024-09-26] MEDS ORDERED: Reglan 10 MG/2 ML ONE (07:27)
[2024-09-26] MEDS ORDERED: Pepcid 20 MG VIAL IV ONE (07:27)
[2024-09-26] MEDS ORDERED: Lactated Ringers 1,000 ML IV ONE ×2 (07:27→09:37)
[2024-09-26] MEDS ORDERED: Transderm Scop 1.5MG Patch ONE (07:27)
[2024-09-26] MEDS: Lactated Ringers 1,000 ML IV SCH (07:31)
[2024-09-26] MEDS: Pepcid 20 MG VIAL IV ONE (07:31)
[2024-09-26] MEDS: Reglan 10 MG/2 ML IV ONE (07:31)
[2024-09-26] MEDS: Transderm Scop 1.5MG Patch TOP PRN (07:31)
[2024-09-26 07:32] LABS: HCG URINE TEST NEGATIVE (NEGATIVE)
[2024-09-26 07:36] VITALS: RESP 18
[2024-09-26] MEDS: CEFAZOLIN 1 GM/100 ML NACL IVPB 1 GM/100 ML IVPB IV ONE (07:50)
[2024-09-26] MEDS ORDERED: Sensorcaine 0.25% 10 ML ONE (09:36)
[2024-09-26] MEDS ORDERED: Versed 2 MG/2 ML Injection ONE ×2 (10:14→11:54)
[2024-09-26] MEDS ORDERED: DIPRIVAN 200 MG/20 ML IV ONE ×2 (10:16→11:52)
[2024-09-26] MEDS ORDERED: SUBLIMAZE 100 MCG/2 ML ONE ×2 (10:16→11:55)
[2024-09-26] MEDS ORDERED: Xylocaine-Mpf 2% 5 Ml Vial ONE ×2 (10:17→11:52)
[2024-09-26] MEDS ORDERED: BRIDION 200MG/2ML IV ONE ×2 (10:17→11:52)
[2024-09-26] MEDS ORDERED: ROCURONIUM BROMIDE IV ONE ×2 (10:17→11:52)
[2024-09-26] MEDS ORDERED: Zofran 4 MG/2 ML VIAL ONE ×3 (10:17→11:52)
[2024-09-26] MEDS ORDERED: Decadron 4 MG INJ ONE (10:17)
[2024-09-26] MEDS ORDERED: TORAdol 30 mg Injection ONE ×2 (10:17→10:54)
[2024-09-26] MEDS ORDERED: DEXMEDETOMIDINE 80 MCG/20ML-NS IV ONE ×2 (10:18→11:52)
[2024-09-26] MEDS ORDERED: Pre-Attached Lta Kit TP ONE (10:23)
[2024-09-26] MEDS ORDERED: OFIRMEV 100 ML IV ONE (10:23)
[2024-09-26] MEDS ORDERED: Astramorph-Pf 5 MG/10 ML ONE (11:55)
[2024-09-26] MEDS ORDERED: PHENYLEPHRINE HCL ONE (12:26)
[2024-09-26 12:31] VITALS: BP 113/75; PULSE 59; TEMP 98.6; O2SAT 98
[2024-09-26 14:20] LABS: Appearance Clear (Clear); Bacteria None Seen /HPF (None Seen); Bilirubin Negative (Negative); Blood Negative (Negative); Epithelial Cells None Seen /HPF (None Seen); Glucose, Urine Negative (Negative); Hyaline Casts NONE SEEN /LPF (0-2); Ketones Negative (Negative); Leukocyte Esterase Negative (Negative); Nitrite Negative (Negative); Protein,Urine Dip Negative (Negative); RBC 0-2 /HPF (0-5); Urobilinogen 0.2 mg/dL (0.2); WBC 0-2 /HPF (0-5)
--- NOTE | 2024-09-28 09:23 | OP ---
SURGERY DATE/TIME: 09/26/2024 [id number] PREOPERATIVE DIAGNOSIS: Chronic pelvic pain. POSTOPERATIVE DIAGNOSIS: Chronic pelvic pain with abdominal adhesions. PROCEDURE: Diagnostic laparoscopy, lysis of adhesions. SURGEON: Bora Tinoco D.O. WELL SERVICE PUMP EQUIPMENT OPERATOR: Eliane Ward. ANESTHESIA: General. ESTIMATED BLOOD LOSS: Minimal. COMPLICATIONS: None. FINDINGS: The risks, benefits, indications, and alternatives of the procedure were reviewed with the patient prior to the procedure. Patient understood the risk of infection, bleeding, bowel injury or bladder injury, ureteral injury, pelvic infection, thromboembolic disorder associated with this surgery, and desires to have the surgery as a possible means to alleviate her current medical condition. DESCRIPTION OF PROCEDURE AND FINDINGS: At this point, patient was taken to the operating room, given general sedation, placed in the dorsal lithotomy position, prepped and draped in the usual sterile fashion. A weighted speculum was then placed in the patient's vagina. The anterior lip of the cervix was grasped with a single-tooth tenaculum. At this point, a uterine manipulator was then inserted into the endocervical canal as a means to elevate the uterus and use for manipulation. Attention was then turned to the patient's abdomen where a 5 mm skin incision was made in the umbilical fold. A 5 mm trocar and sleeve were advanced under direct visualization where pneumoperitoneum was obtained with 4 L of CO2 gas. An additional incision was made in the left lateral quadrant region where a 5 mm incision was made and a 5 mm trocar sleeve were advanced under direct visualization. From this point, visualization of the pelvic region appeared to be within normal limits. There was no gross abnormalities located in the pelvic region. The uterus appeared to be normal, as well as the bilateral ovaries and fallopian tubes. There were no gross endometriotic lesions that were seen during this time. There was, however, adhesion between the left colon and left abdominal sidewall for which the suction woodwind instruments inspector was used to lyse the adhesion for which the colon was freed up from the left abdominal sidewall and hemostasis was obtained. Other than the left-sided adhesion, there were no gross abnormalities located anywhere in the abdominal and pelvic region. No gross endometriotic lesions that were noted as well. From this point, all instruments were removed from the patient's abdominal region, and the incisions were closed with 4-0 Monocryl suture. After completion of the procedure, the patient was then taken out of the dorsal lithotomy position, was taken out of anesthesia, and was then taken to the recovery room in stable condition. All instruments and laps were accounted for x2.
== END 2024-09-26 12:40 | disposition home or self-care (01) ==
LOC: SDC 07:11
PROVIDERS: ATTEND Obstetrics & Gynecology
DX: R10.2 Pelvic and perineal pain (principal); N73.6 Female pelvic peritoneal adhesions (postinfective)
CPT/HCPCS: 44180; 81001; 81025; 87086; J0690; J1100; J1885; J2250; J2274; J2371; J2405; J2704; J3010; A9270-GY

== ENCOUNTER 2025-02-14 06:07 | Day surgery (SDC) | payer OTHER ==
[2025-02-14 06:21] LABS: HCG URINE TEST NEGATIVE (NEGATIVE)
[2025-02-14] MEDS: Lactated Ringers 1,000 ML IV SCH (06:21)
[2025-02-14] MEDS ORDERED: propofoL IV ONE ×2 (07:23→07:39)
[2025-02-14 08:29] VITALS: RESP 16; TEMP 98; O2SAT 97
[2025-02-14 08:42] VITALS: BP 103/69; PULSE 63
--- NOTE | 2025-02-16 13:17 | OP ---
SURGERY DATE/TIME: 02/14/2025 [id number] PREOPERATIVE DIAGNOSES: Malpositioned intrauterine device, retained intrauterine device. POSTOPERATIVE DIAGNOSES: Malpositioned intrauterine device, retained intrauterine device. PROCEDURE: Manual removal of intrauterine device. SURGEON: Bora Tinoco DO MOLD BREAKER: Eliane Ward. ANESTHESIA: MAC sedation. ESTIMATED BLOOD LOSS: Minimal. COMPLICATIONS: None. FINDINGS: The risks, benefits, indications, and alternatives of the procedure were reviewed with the patient prior to the procedure. Patient understood the risks of infection, bleeding, bowel injury, bladder injury, uterine perforation, pelvic infection associated with the surgery and desires to have the surgery as a possible means to alleviate her current medical condition. DESCRIPTION OF PROCEDURE AND FINDING: At this point, the patient was taken to the operating room, given general sedation, placed in a dorsal lithotomy position. After the day prior, the intrauterine device string was not visible and did not tolerate the procedure in the office. Therefore, was taken to the operating room for manual removal of the intrauterine device, possible hysteroscopy. Patient was placed in the dorsal lithotomy position as mentioned. She was prepped and draped and Busby forceps was then used and inserted into the endocervical region where the Busby forceps was used. The intrauterine device was identified and grasped with the Busby forceps, and it was removed without complication. After removal, the patient was then taken out of dorsal lithotomy position, was taken out of anesthesia, was then taken to the recovery room in stable condition. All instruments and laps were accounted for x2.
== END 2025-02-14 08:54 | disposition home or self-care (01) ==
LOC: SDC 06:07 → EDSTATUS 16:29
PROVIDERS: ATTEND Obstetrics & Gynecology
DX: T83.32XA Displacement of intrauterine contraceptive device, initial encounter (principal)
CPT/HCPCS: 58301; 81025; J2704

== ENCOUNTER 2025-03-20 19:42 | Emergency (ER) | payer OTHER ==
[2025-03-20 19:59] VITALS: TEMP 98.3; O2SAT 99
[2025-03-20] MEDS ORDERED: Compazine 10 MG/2 ML IM PRN (20:01)
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
[2025-03-20] MEDS ORDERED: Sodium Chloride 0.9% 1000 ML 1,000 ML ONE (20:12)
[2025-03-20] MEDS ORDERED: TORAdol 30 mg Injection ONE (20:12)
[2025-03-20] MEDS ORDERED: Compazine 10 MG/2 ML ONE (20:12)
[2025-03-20] MEDS: Sodium Chloride 0.9% 1000 ML 1,000 ML IV STA (20:13)
[2025-03-20] MEDS: TORAdol 30 mg Injection IV ONE (20:14)
[2025-03-20] MEDS: Compazine 10 MG/2 ML IV ONE (20:16)
[2025-03-20 20:36] VITALS: BP 122/61; PULSE 112; RESP 18
[2025-03-20 20:36] LABS: HCG URINE TEST NEGATIVE (NEGATIVE)
[2025-03-20 20:37] LABS: Appearance Cloudy (Clear); Bacteria Few /HPF (None Seen); Bilirubin Negative (Negative); Blood Negative (Negative); Epithelial Cells Few /HPF (None Seen); Glucose, Urine Negative (Negative); Hyaline Casts NONE SEEN /LPF (0-2); Ketones Trace (Negative); Leukocyte Esterase Trace (Negative); Nitrite Negative (Negative); Protein,Urine Dip Negative (Negative); RBC 0-2 /HPF (0-5); Specific Gravity 1.025 (1.005-1.030); WBC 0-2 /HPF (0-5)
[2025-03-20 20:58] LABS: Group A Strep NOT DETECTED (NEGATIVE)
[2025-03-20 21:10] LABS: INFLUENZA A NEGATIVE (NEGATIVE); INFLUENZA B NEGATIVE (NEGATIVE); RESPIRATORY SYNCTIAL VIRUS NEGATIVE (NEGATIVE); SARS-CoV-2 Xpert Express NEGATIVE (NEGATIVE)
== END 2025-03-20 20:37 | disposition left against medical advice (07) ==
LOC: ED 19:42
DX: R51.9 Headache, unspecified (principal); J02.9 Acute pharyngitis, unspecified; B34.9 Viral infection, unspecified; Z72.0 Tobacco use
CPT/HCPCS: 0241U; 81001; 81025; 87651; 94760; 96374; 96375; 99284; J1885